=== PATIENT | male | born 1975 | race Two or more races ===

== ENCOUNTER 2023-11-20 13:40 | Emergency (ER) | payer MEDICAID ==
[~2023-11-20] VITALS: Ht 172.7 cm; Wt 95.5 kg
[2023-11-20] MEDS: ketorolac trometh. 30mg/ml inj. IM ONE (15:03)
[2023-11-20 15:43] VITALS: BP 142/68; PULSE 63; RESP 16; TEMP 98.7; O2SAT 99
== END 2023-11-20 15:44 | disposition home or self-care (01) ==
LOC: ER 13:41
DX: M77.8 Other enthesopathies, not elsewhere classified (principal)
CPT/HCPCS: 73080; 96372; 99283; J1885